=== PATIENT | male | born 1980 | race Two or more races ===

== ENCOUNTER 2017-05-12 00:29 | Emergency (ER) | payer OTHER ==
[~2017-05-12] VITALS: Ht 177.8 cm; Wt 77.6 kg
[~2017-05-12 00:29] MED LIST: NEOM1SOL
[2017-05-12 00:42] VITALS: BP 112/75
== END 2017-05-12 04:12 | disposition left against medical advice (07) ==
LOC: ER 00:29
DX: M79.621 Pain in right upper arm (principal); M79.631 Pain in right forearm; M25.521 Pain in right elbow; Z53.21 Procedure and treatment not carried out due to patient leaving prior to being seen by health care provider
CPT/HCPCS: 73080; 73090

== ENCOUNTER 2025-11-06 22:17 | Emergency (ER) | payer OTHER ==
[~2025-11-06] VITALS: Ht 180.3 cm; Wt 90.5 kg
[2025-11-06] MEDS ORDERED: AMOX875T3 PO (23:06)
[2025-11-06] MEDS ORDERED: IBUP-1455 PO (23:06)
[2025-11-06] MEDS ORDERED: COROSUS EACH EAR (23:06)
--- NOTE | 2025-11-06 23:06 | ED.PDOC ---
History of Present Illness HPI Comments 45-year-old male complaining of left ear pain. Patient states pain has been going on for two weeks. Has tried [id number] drops with little help. States pain is getting worse. No fever no chills. Nothing makes it better. States he did notice some nasal congestion one week ago but that started to imp rove. Chief Complaint: Earache Time Seen by MD: 22:30 Primary Care Provider: NONE Reviewed Notes: Nurses Notes, Medications, Allergies Allergies: Coded Allergies: NO KNOWN ALLERGIES (Unverified , 03/11/13) Home Meds Reported Medications [Neomycin/Swfsjtho35] (Neomycin/Polymyxin/Hydroc) 1 % MARY BETH No Conflict Check, % 03/15/13 Information Source: Patient Mode of Arrival: Ambulatory Past Medical History PAST MEDICAL HISTORY: Denies Surgical History: Denies all surgeries Social History Smoker: Non-Smoker Alcohol: Denies ETOH Use Drugs: Denies Drug Use Lives In: Home Constitutional: denies: chills, diaphoresis, fatigue, fever, malaise, sweats, weakness, others EENTM: denies: blurred vision, double vision, ear bleeding, ear discharge, ear drainage, ear pain, ear ringing, eye pain, eye redness, hearing loss, mouth pain, mouth swelling, nasal discharge, nose bleeding, nose congestion, nose pain, photophobia, tearing, throat pain, throat swelling, voice changes, others Respiratory: denies: cough, hemoptysis, orthopnea, SOB at rest, shortness of breath, SOB with excertion, stridor, wheezing, others Cardiovascular: denies: chest pain, dizzy spells, diaphoresis, Dyspnea on exertion, edema, irregular heart beat, left arm pain, lightheadedness, palpitations, PND, syncope, others Gastrointestinal: denies: abdomen distended, abdominal pain, blood streaked bowels, constipated, diarrhea, dysphagia, difficulty swallowing, hematemesis, melena, nausea, poor appetite, poor fluid intake, rectal bleeding, rectal pain, vomiting, others Genitourinary: denies: burning, dysuria, flank pain, frequency, hematuria, incontinence, penile discharge, penile sore, pain, testicle pain, testicle swelling, urgency, others Neurological: denies: dizziness, fainting, headache, left sided numbness, left sided weakness, numbness, paresthesia, pre-existing deficit, right sided numbness, right sided weakness, seizure, speech problems, tingling, tremors, weakness, others Musculoskeletal: denies: back pain, gout, joint pain, joint swelling, muscle pain, muscle stiffness, neck pain, others Integumetry: denies: bruises, change in color, change in hair/nails, dryness, laceration, lesions, lumps, rash, wounds, others Allergic/Immunocompromised: denies: Difficulty Healing, Frequent Infections, Hives, Itching, others Unable to Obtain due to: Dementia Physical Exam General Appearance: No Apparent Distress, Normal HEENT: Normal ENT Inspection, Pharynx Normal, TM Abnormal (L) (Swelling noted in the canal) Neck: Full Range of Motion, Non-Tender, Normal, Normal Inspection Respiratory: Chest Non-Tender, Lungs Clear, No Accessory Muscle Use, No Respiratory Distress, Normal Breath Sounds Cardiovascular: No Edema, No JVD, No Murmur, No Gallop, Normal Peripheral Pulses, Regular Rate/Rhythm Breast Exam: Deferred Gastrointestinal: No Organomegaly, Non Tender, No Pulsatile Mass, Normal Bowel Sounds, Soft Genitalia: Deferred Pelvic: Deferred Rectal: Deferred Extremities: No calf tenderness, Normal capillary refill, Normal inspection, Normal range of motion, Non-tender, No pedal edema Musculoskeletal : Apperance: Normal Neurologic: Alert, inspector publications II-XII nml as Tested, No Motor Deficits, Normal Affect, Normal Mood, No Sensory Deficits Cerebellar Function: Normal Reflexes: Normal Skin: Dry, Normal Color, Warm Lymphatic: No Adenopathy Was a procedure done? Was a procedure done?: No Differential Dx Considerations may include: URI, influenza, COVID, strep throat, pharyngitis, pneumonia X-Ray, Labs, Meds, VS Vital Signs Date Time Temp Pulse Resp B/P (MAP) Pulse Ox O2 Delivery O2 Flow Rate FiO2 11/06/25 22:19 98.0 95 16 126/70 95 98.0 X-Ray, Labs, Meds, VS Comment Imaging: X-rays and CT scans were reviewed and interpreted by this provider, imaging shows no fractures and no pathological disease. Pending radiology review. Laboratory: Labs reviewed and interpreted by this provider. No significant abnormalities noted. Patient has prior medical visits reviewed. Med reconciliation performed Vital signs reviewed Time of 1ST Reevaluation: 22:58 Reevaluation 1ST: Unchanged Patient Education/Counseling: Diagnosis, Treatment, Prognosis, Need For Follow Up (Follow up with the PCP in the next 2-3 days. Return to emergency department if symptoms worsened.) Family Education/Counseling: No Family Present SEPSIS Sepsis Screen Date sepsis recognized/suspect: Nov 06, 2025 Time Sepsis recognized/suspect: 2221 Recent Procedure: No On Antibiotic Therapy: No Respiratory Rate >20: No Heart Rate >90: No Temp<36 C (96.8 F) or >38.3 C: No SBP <90 or MAP <65 mmHG: No New Acute Mental Status Change: No Is the patient on CPAP, BIPAP,: No Vital Signs Date Time Temp Pulse Resp B/P (MAP) Pulse Ox O2 Delivery O2 Flow Rate FiO2 11/06/25 22:19 98.0 95 16 126/70 95 98.0 Departure 1 Departure Time of Disposition: 23:04 Impression: Primary Impression: Otitis media Qualified Codes: H66.002 - Acute suppurative otitis media without spontaneous rupture of ear drum, left ear Disposition: 01 HOME / SELF CARE / HOMELESS Condition: Stable e-Prescriptions Fiidocta-Xmlvkslor-Ft (Otic) (Cortisporin Otic Susp) [address] 3 DROP EACH EAR TID for 6 Days, #10 ML Prov: TREY KAYE CART ATTENDANT 11/06/25 Ibuprofen Micronized (Ibuprofen) 800 Mg Tab 800 MG PO TID PRN, #40 TAB Prov: TREY KAYE CART ATTENDANT 11/06/25 Amoxicillin Trihydrate (Amoxicillin) 875 Mg Tab 1 TAB PO BID for 7 Days, #14 TAB Prov: TREY KAYE CART ATTENDANT 11/06/25 Discharged With: Self Critical Care Note Critical Care Time?: No Stability Stability form required: No TREY KAYE Nov 06, 2025 23:06
[2025-11-06 23:35] VITALS: BP 113/55; PULSE 89; RESP 20; TEMP 98.2; O2SAT 96
== END 2025-11-06 23:36 | disposition home or self-care (01) ==
LOC: ER 22:17
DX: H66.002 Acute suppurative otitis media without spontaneous rupture of ear drum, left ear (principal)